=== PATIENT | female | born 2000 | race Caucasian/White ===

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

== ENCOUNTER → 2022-02-18 | Outpatient (CLI) | payer OTHER ==
[2022-02-18 14:45] LABS: Basophils # (A) 0.05 X 10*3/uL (0.00-0.10); Basophils % (A) 0.7 %; Eosinophils # (A) 0.17 X 10*3/uL (0.04-0.35); Eosinophils % (A) 2.2 %; HCT 43.6 % (37.2-46.3); HGB 13.6 g/dL (12.0-15.0); Immature Grans, Automated 0.5 %; Lymphocytes # (A) 2.07 X 10*3/uL (0.90-5.00); Lymphocytes % (A) 27.2 %; MCH 30.7 pg (27.0-32.0); MCHC 31.2 g/dL (32.0-37.0); MCV 98.4 fL (80.0-97.0); Mean Platelet Volume 9.9 fL (9.5-12.2); Monocytes % (A) 7.9 %; NRBC Per 100 WBC 0 /100 WBCS (0.0-0.0); Neutrophils # (A) 4.67 X 10*3/uL (1.80-7.70); Neutrophils % (A) 61.5 %; Platelet Count 389 X 10*3/uL (140-440); RBC 4.43 X 10*6/uL (4.10-5.20); RDW 12.7 % (11.5-14.5)
[2022-02-18 16:05] LABS: African American GFR (CKD) 130.5 (60.0-200.0); Albumin 4.7 g/dL (3.8-4.9); Albumin/Globulin Ratio 1.94 (1.60-3.17); Anion Gap 9.4 mmol/L (10.00-18.00); BUN/Creat Ratio 14.17 Ratio (12.00-20.00); Blood Urea Nitrogen 10.8 mg/dL (9.0-27.0); Calcium 9.9 mg/dL (8.7-10.3); Globulin 2.4 g/dL (1.6-3.3); Non-African American GFR(CKD) 112.6 (60.0-200.0); Potassium 5.1 mmol/L (3.5-5.5); Testosterone 59.3 ng/mL (9.01-47.94); Total Bilirubin 0.4 mg/dL (0.30-1.20); Total Protein 7.1 g/dL (6.2-8.2)
== END | disposition home or self-care (01) ==
LOC: LABWHC1 09:23
DX: Z00.00 Encounter for general adult medical examination without abnormal findings (principal); E55.9 Vitamin D deficiency, unspecified
CPT/HCPCS: 36415; 80053; 82024; 82306; 82533; 84403; 85025

== ENCOUNTER → 2022-05-26 | Outpatient (CLI) | payer OTHER ==
[2022-05-26 18:27] LABS: Basophils # (A) 0.05 X 10*3/uL (0.00-0.10); Basophils % (A) 0.5 %; Eosinophils # (A) 0.24 X 10*3/uL (0.04-0.35); Eosinophils % (A) 2.2 %; HCT 42.5 % (37.2-46.3); HGB 13.8 g/dL (12.0-15.0); Immature Grans, Automated 0.3 %; Lymphocytes # (A) 2.07 X 10*3/uL (0.90-5.00); Lymphocytes % (A) 19.1 %; MCH 30.9 pg (27.0-32.0); MCHC 32.5 g/dL (32.0-37.0); MCV 95.1 fL (80.0-97.0); Mean Platelet Volume 9.9 fL (9.5-12.2); Monocytes # (A) 0.62 X 10*3/uL (0.20-1.00); Monocytes % (A) 5.7 %; NRBC Per 100 WBC 0 /100 WBCS (0.0-0.0); Neutrophils # (A) 7.83 X 10*3/uL (1.80-7.70); Neutrophils % (A) 72.2 %; Platelet Count 430 X 10*3/uL (140-440); RBC 4.47 X 10*6/uL (4.10-5.20); RDW 12.1 % (11.5-14.5); WBC 10.84 X 10*3/uL (4.50-10.00)
[2022-05-26 19:49] LABS: African American GFR (CKD) 144.6 (60.0-200.0); Albumin 4.9 g/dL (3.8-4.9); Albumin/Globulin Ratio 1.96 (1.60-3.17); Anion Gap 11.5 mmol/L (10.00-18.00); BUN/Creat Ratio 22.43 Ratio (12.00-20.00); Blood Urea Nitrogen 15.7 mg/dL (9.0-27.0); Calcium 10.1 mg/dL (8.7-10.3); Carbon Dioxide 23.5 mmol/L (20.0-27.5); Globulin 2.5 g/dL (1.6-3.3); Non-African American GFR(CKD) 124.7 (60.0-200.0); Potassium 4.2 mmol/L (3.5-5.5); Total Bilirubin 0.2 mg/dL (0.30-1.20); Total Protein 7.4 g/dL (6.2-8.2)
[2022-05-26 21:06] LABS: Appearance,Urine Clear (Clear); Bilirubin,Urine Negative (Negative); Blood,Urine Negative (Negative); Color,Urine Yellow (Yellow); Ketones,Urine Negative (Negative); Nitrite,Urine Negative (Negative); PH, Urine 6.5 (5.0-8.0); Specific Gravity,Urine 1.021 (1.001-1.030); Urobilinogen,Urine 0.2 (0.2,1.0)
[2022-05-26 21:34] LABS: Bacteria,Urine 1+ /HPF (None Seen); Calcium Oxalate Crystals,Urine Present /LPF (None Seen)
== END | disposition home or self-care (01) ==
LOC: LABWHC1 12:15
PROVIDERS: ATTEND Pediatrics
DX: N39.0 Urinary tract infection, site not specified (principal)
CPT/HCPCS: 36415; 80053; 81001; 85025; 87086

== ENCOUNTER 2024-04-04 11:34 | Emergency (ER) | payer OTHER ==
[2024-04-04 11:43] VITALS: RESP 16; TEMP 99.2
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
[2024-04-04] MEDS: ACETAMINOPHEN TAB 325 MG TAB PO STA (11:58)
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
[2024-04-04 13:58] VITALS: BP 119/78; PULSE 67
== END 2024-04-04 14:00 | disposition home or self-care (01) ==
LOC: EC 11:34
DX: V89.2XXA Person injured in unspecified motor-vehicle accident, traffic, initial encounter
CPT/HCPCS: 70450; 72125; 81025; 99284

== ENCOUNTER 2024-05-03 23:10 | Emergency (ER) | payer OTHER ==
[2024-05-04] MEDS: KETOROLAC 15 MG/ML 1 ML VIAL IM STA (00:15)
--- NOTE | 2024-05-04 00:32 | ED ---
Back Pain HPI - General Chief Complaint: Back Pain/Injury Stated Complaint: Side Pain Time Seen by Provider: 05/03/24 23:46 Source: patient Limitations: no limitations - History of Present Illness Initial Comments: 24-year-old female presenting with chief complaint of back pain. Patient is having pain in her right side. Pain has been ongoing for the last few days. No dysuria or hematuria. Denies any injury or trauma. No loss of bowel or bladder control or saddle paresthesia. She does state that she been having cloudy urine. No fevers or chills. No nausea or vomiting. She does have some radiation to the side of her abdomen. - Related Data Home Medications Medication Instructions Recorded Confirmed FLUoxetine HCL [PROzac] 20 mg PO HS 05/04/24 05/04/24 buPROPion XL [Wellbutrin XL] 150 mg PO DAILY 05/04/24 05/04/24 Allergies Allergy/AdvReac Type Severity Reaction Status Date / Time Latex, Natural Rubber Allergy Unknown Verified 05/04/24 17:15 Sulfa (Sulfonamide Allergy Unknown Verified 05/04/24 17:15 Antibiotics) STEROIDS AdvReac see comment Uncoded 05/04/24 17:15 Review of Systems ROS Statement: Those systems with pertinent positive or pertinent negative responses have been documented in the HPI. ROS Other: All systems not noted in ROS Statement are negative. Past Medical History Past Medical History: Asthma Additional Past Medical History / Comment(s): migraines, kidney stones History of Any Multi-Drug Resistant Organisms: None Reported Past Surgical History: No Surgical Hx Reported Additional Past Surgical History / Comment(s): nasal surgery Past Psychological History: No Psychological Hx Reported Smoking Status: Current every day smoker, Vaper Past Alcohol Use History: Occasional Past Drug Use History: Marijuana General Exam Limitations: no limitations General appearance: alert, in no apparent distress Head exam: Present: atraumatic, normocephalic, normal inspection Eye exam: Present: normal appearance, PERRL Neck exam: Present: normal inspection. Absent: meningismus Respiratory exam: Present: normal lung sounds bilaterally. Absent: respiratory distress, wheezes, rales, rhonchi, stridor Cardiovascular Exam: Present: regular rate, normal rhythm, normal heart sounds. Absent: systolic murmur, diastolic murmur, rubs, gallop, clicks Back exam: Present: normal inspection. Absent: tenderness Neurological exam: Present: alert, oriented X3 Psychiatric exam: Present: normal affect, normal mood Skin exam: Present: warm, dry Course Vital Signs 05/03/24 05/04/24 23:18 02:11 Temperature 99.2 F 98.3 F Pulse Rate 114 H 76 Respiratory 20 18 Rate Blood Pressure 117/79 103/70 O2 Sat by Pulse 97 100 Oximetry Medical Decision Making - Medical Decision Making Was pt. sent in by a medical professional or institution (, PA, BALLOON MAKER, urgent care, hospital, or retirement...) When possible be specific @ -No Did you speak to anyone other than the patient for history (EMS, parent, family, police, friend...)? What history was obtained from this source @ -No Did you review nursing and triage notes (agree or disagree)? Why? @ -I reviewed and agree with nursing and triage notes Were old charts reviewed (outside hosp., previous admission, EMS record, old EKG, old radiological studies, urgent care reports/EKG's, retirement records)? Report findings @ -No old charts were reviewed Differential Diagnosis (chest pain, altered mental status, abdominal pain women, abdominal pain men, vaginal bleeding, weakness, fever, dyspnea, syncope, headache, dizziness, GI bleed, back pain, seizure, CVA, palpatations, mental health, musculoskeletal)? @ - MDM Differential Back Pain: Strain, zoster, cauda equina syndrome, epidural abscess, vertebral osteomyelitis, discitis, fracture, subluxation, disc herniation, DJD, spinal steffen nosis, dissection, AAA, pancreatitis, peptic ulcer disease, pyelonephritis, kidney stone this is not meant to be an all-inclusive list. EKG interpreted by me (3pts min.). @ -As above X-rays interpreted by me (1pt min.). @ -None done CT interpreted by me (1pt min.). @ -None done U/S interpreted by me (1pt. min.). @ -None done What testing was considered but not performed or refused? (CT, X-rays, U/S, labs)? Why? @ -None What meds were considered but not given or refused? Why? @ -None Did you discuss the management of the patient with other professionals (professionals i.e. , CHRISTOPHER, BALLOON MAKER, lab, RT, psych nurse, vp digital marketing social media and crm, tnt powder worker, teacher, business practices officer, binder caser)? Give summary @ -No Was smoking cessation discussed for >3mins.? @ -No Was critical care preformed (if so, how long)? @ -No Were there social determinants of health that impacted care today? How? (Homelessness, low income, unemployed, alcoholism, drug addiction, transportation, low edu. Level, literacy, decrease access to med. care, custodial, rehab)? @ -No Was there de-escalation of care discussed even if they declined (Discuss DNR or withdrawal of care, Hospice)? DNR status @ -No What co-morbidities impacted this encounter? (DM, HTN, Smoking, COPD, CAD, Cancer, CVA, ARF, Chemo, Hep., AIDS, mental health diagnosis, sleep apnea, morbid obesity)? @ -None Was patient admitted / discharged? Hospital course, mention meds given and route, prescriptions, significant lab abnormalities, going to OR and other pertinent info. @ -24-year-old female presenting with chief complaint of pain in her right side/back. History and physical examination are conducted. Patient mildly tachycardic. Negative for influenza, RSV, COVID. Urine is positive for infection with greater than 182 WBCs, positive nitrates, small blood. Negative hCG. Patient is treated with ketorolac and 1 g of ceftriaxone. She is educated on today's findings. Provided with prescription for Keflex. She is agreeable discharge home. Follow-up with PCP. Report back to ER with any new or worsening symptoms. Discussed return parameters and answered all questions. Patient conveyed verbal understanding and agreed to the plan. I discussed this case in detail with my attending Dr. Davis Undiagnosed new problem with uncertain prognosis? @ -No Drug Therapy requiring intensive monitoring for toxicity (Heparin, Nitro, Insulin, Cardizem)? @ -No Were any procedures done? @ -No Diagnosis/symptom? @ -Pyelonephritis Acute, or Chronic, or Acute on Chronic? @ -Acute Uncomplicated (without systemic symptoms) or Complicated (systemic symptoms)? @ -Uncomplicated Side effects of treatment? @ -No Exacerbation, Progression, or Severe Exacerbation? @ -No Poses a threat to life or bodily function? How? (Chest pain, [place], [place], pneumonia, PE, COPD, DKA, ARF, appy, cholecystitis, CVA, Diverticulitis, Homicidal, Suicidal, threat to staff... and all critical care pts) @ -Potential if not properly treated - Lab Data Lab Results 05/04/24 05/04/24 05/04/24 Range/Units 00:14 00:14 00:14 Urine Color Colorless Urine Appearance Cloudy H (Clear) Urine pH 5.5 (5.0-8.0) Ur Specific [place] 1.011 (1.001-1.035) Urine Protein Trace H (Negative) Urine Glucose (UA) Negative (Negative) Urine Ketones Negative (Negative) Urine Blood Small H (Negative) Urine Nitrite Positive H (Negative) Urine Bilirubin Negative (Negative) Urine Urobilinogen <2.0 (<2.0) mg/dL Ur Leukocyte Esterase Large H (Negative) Urine WBC >182 H (0-5) /hpf Urine WBC Clumps Few H (None) /hpf Urine Bacteria Occasional H (None) /hpf Urine Yeast (Budding) Few H (None) /hpf Urine HCG, Qual Not Detected (Not Detectd) Influenza Type A (PCR) Not Detected (Not Detectd) Influenza Type B (PCR) Not Detected (Not Detectd) RSV (PCR) Not Detected (Not Detectd) SARS-CoV-2 (PCR) Not Detected (Not Detectd) Disposition Clinical Impression: Pyelonephritis Disposition: HOME SELF-CARE Condition: Fair Instructions (If sedation given, give patient instructions): Kidney Infection (ED) Additional Instructions: Follow-up with your PCP. Report back to ER with any new or worsening symptoms. Take medication as prescribed. Take Motrin and Tylenol as needed for pain control. Is patient prescribed a controlled substance at d/c from ED?: No Referrals: Nonstaff,Physician [Primary Care Provider] - 1-2 days Time of Disposition: 01:52
[2024-05-04 00:50] LABS: Appearance,Urine Cloudy (Clear); Bacteria,Urine Occasional /hpf; Bilirubin,Urine Negative (Negative); Blood,Urine Small (Negative); Budding Yeast,Urine Few /hpf; Color,Urine Colorless; Glucose,Urine (UA) Negative (Negative); Ketones,Urine Negative (Negative); Leukocyte Esterase,Urine Large (Negative); Nitrite,Urine Positive (Negative); PH, Urine 5.5 (5.0-8.0); Protein,Urine Trace (Negative); Specific Gravity,Urine 1.011 (1.001-1.035); Urobilinogen,Urine <2.0 mg/dL (<2.0); WBC,Urine >182 /hpf (0-5)
[2024-05-04] MEDS: cefTRIAXone 1,000 MG VIAL (IM USE) IM STA (01:43)
[2024-05-04 02:13] VITALS: BP 103/70; PULSE 76; RESP 18; TEMP 98.3
== END 2024-05-04 02:15 | disposition home or self-care (01) ==
LOC: EC 23:10
DX: N12 Tubulo-interstitial nephritis, not specified as acute or chronic (principal); B96.20 Unspecified Escherichia coli [E. coli] as the cause of diseases classified elsewhere
CPT/HCPCS: 99283; 96372 ×2; 81001; 81025; 87086; 87077; 87186; 87636; J0696; J1885

== ENCOUNTER 2024-05-04 13:47 | Inpatient (IN) | payer OTHER ==
--- NOTE | 2024-05-04 14:28 | ED ---
Abdominal Pain HPI - General Chief Complaint: Abdominal Pain Stated Complaint: recheck kidney issue Time Seen by Provider: 05/04/24 14:07 Source: patient, RN notes reviewed Mode of arrival: ambulatory Limitations: no limitations - History of Present Illness Initial Comments: 24-year-old female presents to the emergency department with chief complaint of nausea vomiting, right flank pain, and dysuria. She states that she was seen in the emergency department yesterday she received a prescription for antibiotics which she has not been able to fill since then she has had intractable nausea and vomiting. Her history is significant for right nephrolithiasis. She reports cloudy urine, dysuria, right flank pain, fever, and generalized mild abdominal pain. She denies hematuria, shortness of breath, chest pain, palpitations. - Related Data Home Medications Medication Instructions Recorded Confirmed Cephalexin [Keflex] 500 mg PO TID 02/08/21 02/08/21 Ibuprofen [Motrin Ib] 600 mg PO Q8H PRN 02/08/21 02/08/21 Previous Rx's Medication Instructions Recorded HYDROcodone/APAP 5-325MG [Emma 1 tab PO Q6HR PRN 3 Days #12 tab 02/08/21 5-325] Ondansetron [Zofran ODT] 4 mg PO Q8HR PRN 8 Days #24 tab 02/08/21 Cephalexin [Keflex] 500 mg PO Q6HR 14 Days #56 cap 05/04/24 Allergies Allergy/AdvReac Type Severity Reaction Status Date / Time Sulfa (Sulfonamide Allergy Unknown Verified 05/04/24 14:03 Antibiotics) Latex, Natural Rubber AdvReac Unknown Verified 05/03/24 23:20 STEROIDS AdvReac Unknown Uncoded 05/03/24 23:20 Review of Systems ROS Statement: Those systems with pertinent positive or pertinent negative responses have been documented in the HPI. ROS Other: All systems not noted in ROS Statement are negative. Past Medical History Past Medical History: Asthma Additional Past Medical History / Comment(s): migraines, kidney stones History of Any Multi-Drug Resistant Organisms: None Reported Past Surgical History: No Surgical Hx Reported Additional Past Surgical History / Comment(s): nasal surgery Past Psychological History: No Psychological Hx Reported Smoking Status: Current every day smoker, Vaper Past Alcohol Use History: Occasional Past Drug Use History: Marijuana General Exam Limitations: no limitations General appearance: alert, in no apparent distress Head exam: Present: atraumatic, normocephalic, normal inspection Eye exam: Present: normal appearance, PERRL, EOMI. Absent: scleral icterus, conjunctival injection, periorbital swelling Respiratory exam: Present: normal lung sounds bilaterally. Absent: respiratory distress, wheezes, rales, rhonchi, stridor Cardiovascular Exam: Present: regular rate, normal rhythm, normal heart sounds. Absent: systolic murmur, diastolic murmur, rubs, gallop, clicks GI/Abdominal exam: Present: soft, normal bowel sounds. Absent: distended, tenderness, guarding, rebound, rigid Course Vital Signs 05/04/24 14:03 Temperature 99 F Pulse Rate 109 H Respiratory 20 Rate Blood Pressure 107/55 O2 Sat by Pulse 96 Oximetry Medical Decision Making - Medical Decision Making Was pt. sent in by a medical professional or institution (CHRISTOPHER Zhang, PATIENT INSURANCE CLERK, urgent care, hospital, or fdc...) When possible be specific @ -No Did you speak to anyone other than the patient for history (EMS, parent, family, police, friend...)? What history was obtained from this source @ -No Did you review nursing and triage notes (agree or disagree)? Why? @ -I reviewed and agree with nursing and triage notes Were old charts reviewed (outside hosp., previous admission, EMS record, old EKG, old radiological studies, urgent care reports/EKG's, fdc records)? Report findings @ -Reviewed urinalysis from yesterday Differential Diagnosis (chest pain, altered mental status, abdominal pain women, abdominal pain men, vaginal bleeding, weakness, fever, dyspnea, syncope, headache, dizziness, GI bleed, back pain, seizure, CVA, palpatations, mental health, musculoskeletal)? @ -Differential Abdominal Pain Women: Appendicitis, Cholecystitis, diverticulosis, ischemic bowel, pancreatitis, hepatitis, UTI, gastroenteritis, AAA, incarcerated hernia, bowel obstruction, constipation, inflammatory bowel, hepatitis, peptic ulcer disease, splenic infarction, perforated viscus, vulvitis, ovarian torsion, PID, kidney stone, placenta abruption, this is not meant to be an all-inclusive list EKG interpreted by me (3pts min.). @ -None X-rays interpreted by me (1pt min.). @ -None done CT interpreted by me (1pt min.). @ -None done U/S interpreted by me (1pt. min.). @ -None done What testing was considered but not performed or refused? (CT, X-rays, U/S, labs)? Why? @ -None What meds were considered but not given or refused? Why? @ -None Did you discuss the management of the patient with other professionals (professionals i.e. Dr., PA, PATIENT INSURANCE CLERK, lab, RT, psych nurse, social worker masters, micro computer data processor, teacher, chief operating officer, rn case manager)? Give summary @ -EMH for admission Was smoking cessation discussed for >3mins.? @ -No Was critical care preformed (if so, how long)? @ -No Were there social determinants of health that impacted care today? How? (Homelessness, low income, unemployed, alcoholism, drug addiction, transportation, low edu. Level, literacy, decrease access to med. care, long-term, rehab)? @ -No Was there de-escalation of care discussed even if they declined (Discuss DNR or withdrawal of care, Hospice)? DNR status @ -No What co-morbidities impacted this encounter? (DM, HTN, Smoking, COPD, CAD, Cancer, CVA, ARF, Chemo, Hep., AIDS, mental health diagnosis, sleep apnea, morbid obesity)? @ -None Was patient admitted / discharged? Hospital course, mention meds given and route, prescriptions, significant lab abnormalities, going to OR and other pertinent info. @ -Admitted patient has significant UTI, concern for pyelonephritis patient noted to be tachycardic, febrile along with leukocytosis and lactic acidosis. Patient was given fluid bolus, patient started maintenance fluids, patient was given additional 1 g of Rocephin as she received 112 hours ago. Patient was kept on 2 gm of Rocephin every 24 hours. Undiagnosed new problem with uncertain prognosis? @ -No Drug Therapy requiring intensive monitoring for toxicity (Heparin, Nitro, Insulin, Cardizem)? @ -No Were any procedures done? @ -No Diagnosis/symptom? @ -Pyelonephritis Acute, or Chronic, or Acute on Chronic? @ -Acute Uncomplicated (without systemic symptoms) or Complicated (systemic symptoms)? @ -Complicated Side effects of treatment? @ -No Exacerbation, Progression, or Severe Exacerbation? @ -No Poses a threat to life or bodily function? How? (Chest pain, [place], [place], pneumonia, PE, COPD, DKA, ARF, appy, cholecystitis, CVA, Diverticulitis, Homicidal, Suicidal, threat to staff... and all critical care pts) @ -Yes sepsis, causing endorgan failure - Lab Data Result diagrams: 05/04/24 14:44 05/04/24 14:44 Lab Results 05/04/24 05/04/24 05/04/24 Range/Units 14:44 14:44 14:44 WBC 17.2 H (3.8-10.6) k/uL RBC 4.13 (3.80-5.40) m/uL Hgb 12.8 (11.4-16.0) gm/dL Hct 38.5 (34.0-46.0) % MCV 93.3 (80.0-100.0) fL MCH 31.1 (25.0-35.0) pg MCHC 33.3 (31.0-37.0) g/dL RDW 11.8 (11.5-15.5) % Plt Count 304 (150-450) k/uL MPV 7.0 Neutrophils % 92 % Lymphocytes % 3 % Monocytes % 4 % Eosinophils % 1 % Basophils % 0 % Neutrophils # 15.8 H (1.3-7.7) k/uL Lymphocytes # 0.5 L (1.0-4.8) k/uL Monocytes # 0.7 (0-1.0) k/uL Eosinophils # 0.2 (0-0.7) k/uL Basophils # 0.0 (0-0.2) k/uL Sodium 135 L (137-145) mmol/L Potassium 3.7 (3.5-5.1) mmol/L Chloride 106 (98-107) mmol/L Carbon Dioxide 17 L (22-30) mmol/L Anion Gap 12 mmol/L BUN 9 (7-17) mg/dL Creatinine 0.63 (0.52-1.04) mg/dL Est GFR (CKD-EPI)AfAm >90 (>60 ml/min/1.73 sqM) Est GFR (CKD-EPI)NonAf >90 (>60 ml/min/1.73 sqM) Glucose 200 H (74-99) mg/dL Plasma Lactic Acid Rg 3.5 H* (0.7-2.0) mmol/L Calcium 9.1 (8.4-10.2) mg/dL Total Bilirubin 0.7 (0.2-1.3) mg/dL AST 29 (14-36) U/L ALT 21 (4-34) U/L Alkaline Phosphatase 49 (38-126) U/L Total Protein 7.1 (6.3-8.2) g/dL Albumin 4.3 (3.5-5.0) g/dL Disposition Clinical Impression: Pyelonephritis Disposition: ADMITTED IP TO THIS HOSP Condition: Fair Referrals: Nonstaff,Physician [Primary Care Provider] - 1-2 days Time of Disposition: 15:56
[2024-05-04] MEDS: KETOROLAC 15 MG/ML 1 ML VIAL IVP STA (14:50)
[2024-05-04] MEDS: ONDANSETRON 4 MG/2 ML VIAL IVP STA (14:50)
[2024-05-04] MEDS: cefTRIAXone IN SWFI 1,000 MG/10 ML SYRINGE IVP STA (14:50)
[2024-05-04] MEDS: SODIUM CHLORIDE 0.9% 1,000 ML IV STA (14:54)
[2024-05-04 15:00] LABS: Basophils % (A) 0 %; Eosinophils # (A) 0.2 k/uL (0-0.7); Eosinophils % (A) 1 %; HCT 38.5 % (34.0-46.0); HGB 12.8 gm/dL (11.4-16.0); Lymphocytes # (A) 0.5 k/uL (1.0-4.8); Lymphocytes % (A) 3 %; MCH 31.1 pg (25.0-35.0); MCHC 33.3 g/dL (31.0-37.0); MCV 93.3 fL (80.0-100.0); Monocytes # (A) 0.7 k/uL (0-1.0); Monocytes % (A) 4 %; Neutrophils # (A) 15.8 k/uL (1.3-7.7); Neutrophils % (A) 92 %; Platelet Count 304 k/uL (150-450); RBC 4.13 m/uL (3.80-5.40); RDW 11.8 % (11.5-15.5); WBC 17.2 k/uL (3.8-10.6)
[2024-05-04 15:12] LABS: AST 29 U/L (14-36); African American GFR (CKD) >90 (>60 ml/min/1.73 sqM); Albumin 4.3 g/dL (3.5-5.0); Alkaline Phosphatase 49 U/L (38-126); Anion Gap 12 mmol/L; Blood Urea Nitrogen 9 mg/dL (7-17); Calcium 9.1 mg/dL (8.4-10.2); Carbon Dioxide 17 mmol/L (22-30); Chloride 106 mmol/L (98-107); Glucose 200 mg/dL (74-99); Non-African American GFR(CKD) >90 (>60 ml/min/1.73 sqM); Potassium 3.7 mmol/L (3.5-5.1); Sodium 135 mmol/L (137-145); Total Bilirubin 0.7 mg/dL (0.2-1.3); Total Protein 7.1 g/dL (6.3-8.2)
[2024-05-04 15:46] LABS: ALT 21 U/L (4-34)
[2024-05-04] MEDS ORDERED: NALOXONE 0.4 MG/ML 1 ML VIAL IV PRN (15:57)
[2024-05-04] MEDS: SODIUM CHLORIDE 0.9% 1,000 ML IV SCH (16:14)
[2024-05-04] MEDS: KETOROLAC 15 MG/ML 1 ML VIAL IVP PRN (17:24)
[2024-05-04 18:53] LABS: Appearance,Urine Cloudy (Clear); Bacteria,Urine Rare /hpf; Bilirubin,Urine Negative (Negative); Blood,Urine Trace (Negative); Color,Urine Colorless; Glucose,Urine (UA) Negative (Negative); Ketones,Urine Negative (Negative); Leukocyte Esterase,Urine Large (Negative); Mucus,Urine Rare /hpf; Nitrite,Urine Negative (Negative); PH, Urine 5.5 (5.0-8.0); Protein,Urine Negative (Negative); RBC,Urine 9 /hpf (0-5); Specific Gravity,Urine 1.012 (1.001-1.035); Squamous Epithelial Cell,Urine 11 /hpf (0-4); Urobilinogen,Urine <2.0 mg/dL (<2.0); WBC,Urine 48 /hpf (0-5)
[2024-05-04] MEDS: ACETAMINOPHEN TAB 325 MG TAB PO PRN (19:26)
[2024-05-05] MEDS: ONDANSETRON 4 MG/2 ML VIAL IVP PRN (09:26)
[2024-05-05] MEDS: buPROPion XL 150 MG TAB.ER.24H PO SCH (10:35)
[2024-05-05 12:28] LABS: Basophils % (A) 0 %; Eosinophils # (A) 0.1 k/uL (0-0.7); Eosinophils % (A) 1 %; HCT 40.4 % (34.0-46.0); HGB 12.9 gm/dL (11.4-16.0); Lymphocytes # (A) 1.4 k/uL (1.0-4.8); Lymphocytes % (A) 16 %; MCH 30.5 pg (25.0-35.0); MCV 95.4 fL (80.0-100.0); Mean Platelet Volume 7.7; Monocytes # (A) 0.7 k/uL (0-1.0); Monocytes % (A) 8 %; Neutrophils # (A) 6.2 k/uL (1.3-7.7); Neutrophils % (A) 73 %; Platelet Count 254 k/uL (150-450); RBC 4.23 m/uL (3.80-5.40); RDW 12.2 % (11.5-15.5); WBC 8.6 k/uL (3.8-10.6)
[2024-05-05] MEDS ORDERED: METOCLOPRAMIDE 5 MG/ML 2 ML VIAL IVP PRN (12:57)
[2024-05-05 13:02] LABS: ALT 15 U/L (4-34); AST 30 U/L (14-36); African American GFR (CKD) >90 (>60 ml/min/1.73 sqM); Alkaline Phosphatase 54 U/L (38-126); Anion Gap 7 mmol/L; Blood Urea Nitrogen 3 mg/dL (7-17); Calcium 8.2 mg/dL (8.4-10.2); Carbon Dioxide 21 mmol/L (22-30); Chloride 112 mmol/L (98-107); Glucose 85 mg/dL (74-99); Magnesium 1.9 mg/dL (1.6-2.3); Non-African American GFR(CKD) >90 (>60 ml/min/1.73 sqM); Sodium 140 mmol/L (137-145); Total Bilirubin 0.4 mg/dL (0.2-1.3); Total Protein 6.9 g/dL (6.3-8.2)
--- NOTE | 2024-05-05 13:44 | XR ---
EXAMINATION TYPE: XR chest 1V portable DATE OF EXAM: 05/05/2024 1:22 PM COMPARISON: Chest radiographs from 09/05/2020 CLINICAL INDICATION: Female, 24 years old with history of shortness of breath; TECHNIQUE: XR chest 1V portable Frontal view of the chest. FINDINGS: Lungs/Pleura: There is no evidence of pleural effusion, focal consolidation, or pneumothorax. Pulmonary vascularity: Unremarkable. Heart/mediastinum: Cardiomediastinal silhouette is unremarkable. Musculoskeletal: No acute osseous pathology. IMPRESSION: No acute cardiopulmonary disease/process. [facility], , 05/05/2024 1:42 PM
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
--- NOTE | 2024-05-05 17:04 | US ---
EXAMINATION TYPE: US kidneys/renal and bladder DATE OF EXAM: 05/05/2024 COMPARISON: 02/08/2021 CLINICAL INDICATION: Female, 24 years old with history of pyelonephritis, hx of kidney stones; Pyelon ephritis. TECHNIQUE: Grayscale imaging of the bilateral kidneys and urinary bladder: FINDINGS: EXAM MEASUREMENTS: Right Kidney: 12.3 x 3.9 x 4.0 cm Left Kidney: 10.8 x 5.1 x 3.8 cm Right Kidney: No hydronephrosis or masses seen Left Kidney: No hydronephrosis or masses seen Bladder: Anechoic Bilateral Jets seen: yes There is no evidence for hydronephrosis at this point in time. No nephrolithiasis is seen. No farooq s are identified. The urinary bladder is anechoic. IMPRESSION: No evidence for obstructive uropathy or calculus. [facility], , 05/05/2024 5:01 PM
[2024-05-05] MEDS: FLUoxetine HCL 20 MG CAP PO SCH (22:07)
[2024-05-06 05:07] LABS: Basophils % (A) 1 %; Eosinophils # (A) 0.1 k/uL (0-0.7); Eosinophils % (A) 2 %; HCT 33.5 % (34.0-46.0); HGB 11.1 gm/dL (11.4-16.0); Lymphocytes % (A) 28 %; MCH 31.1 pg (25.0-35.0); MCV 94.1 fL (80.0-100.0); Mean Platelet Volume 7.7; Monocytes # (A) 0.7 k/uL (0-1.0); Monocytes % (A) 10 %; Neutrophils # (A) 4.1 k/uL (1.3-7.7); Neutrophils % (A) 57 %; Platelet Count 275 k/uL (150-450); RBC 3.56 m/uL (3.80-5.40); RDW 12.2 % (11.5-15.5); WBC 7.1 k/uL (3.8-10.6)
[2024-05-06 06:00] LABS: ALT 13 U/L (4-34); AST 25 U/L (14-36); African American GFR (CKD) >90 (>60 ml/min/1.73 sqM); Albumin 3.3 g/dL (3.5-5.0); Alkaline Phosphatase 46 U/L (38-126); Anion Gap 7 mmol/L; Blood Urea Nitrogen 4 mg/dL (7-17); Calcium 8.1 mg/dL (8.4-10.2); Carbon Dioxide 24 mmol/L (22-30); Chloride 107 mmol/L (98-107); Glucose 97 mg/dL (74-99); Non-African American GFR(CKD) >90 (>60 ml/min/1.73 sqM); Potassium 3.7 mmol/L (3.5-5.1); Sodium 138 mmol/L (137-145); Total Bilirubin 0.2 mg/dL (0.2-1.3)
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
--- NOTE | 2024-05-06 14:39 | P.PN ---
Subjective Progress Note Date: 05/06/24 Principal diagnosis: Reason for follow-up is pyelonephritis and sepsis Patient is a 24-year-old female with a past medical history significant for asthma kidney stone migraine headache presenting to the hospital for evaluation of right flank pain nausea and vomiting, patient diagnosed with sepsis secondary to the right-sided pyelonephritis. On today's evaluation that is 05/06/2024, Patient is afebrile this morning patient is currently on room air and denies having any shortness of breath, the patient denies any chest pain or cough, the patient denies any nausea vomiting right-sided flank pain has decreased in intensity. Patient white count 7.1, creatinine 0.58 cultures currently pending Objective - Vital Signs Vital signs: Vital Signs Temp 97.7 F 05/06/24 08:00 Pulse 60 05/06/24 08:00 Resp 20 05/06/24 08:00 BP 107/67 05/06/24 08:00 Pulse Ox 100 05/06/24 08:00 FiO2 Intake & Output 05/05/24 05/06/24 05/06/24 18:59 06:59 18:59 Intake Total 910 Balance 910 Intake: Intake, IV Titration 910 Amount Sodium Chloride 0.9% 1, 910 000 ml @ 130 mls/hr IV . Q7H42M [facility] Rx#:[id number] - Exam Young female lying in bed in no distress No tachypnea or accessory muscle respiration Unlabored breathing Awake alert oriented x 3 - Labs CBC & Chem 7: 05/06/24 03:51 05/06/24 03:51 Labs: Abnormal Lab Results - Last 24 Hours (Table) 05/05/24 05/06/24 05/06/24 Range/Units 11:51 03:51 03:51 RBC 3.56 L (3.80-5.40) m/uL Hgb 11.1 L (11.4-16.0) gm/dL Hct 33.5 L (34.0-46.0) % Chloride 112 H (98-107) mmol/L Carbon Dioxide 21 L (22-30) mmol/L BUN 3 L 4 L (7-17) mg/dL Calcium 8.2 L 8.1 L (8.4-10.2) mg/dL Total Protein 6.0 L (6.3-8.2) g/dL Albumin 3.3 L (3.5-5.0) g/dL Microbiology - Last 24 Hours (Table) 05/04/24 16:33 Blood Culture - Preliminary Blood Assessment and Plan (1) Sepsis Current Visit: Yes Status: Acute Code(s): A41.9 - SEPSIS, UNSPECIFIED ORGANISM SNOMED Code(s): 33150104 (2) Allergy to sulfa drugs Current Visit: Yes Status: Acute Code(s): Z88.2 - ALLERGY STATUS TO SULFONAMIDES SNOMED Code(s): 48034284 (3) Pyelonephritis Current Visit: Yes Status: Acute Code(s): N12 - TUBULO-INTERSTITIAL NEPHRITIS, NOT SPCF ACUTE OR CHRONIC SNOMED Code(s): 94574366 Plan: 1patient presented to hospital with sepsis in this patient who did have fever elevated white count right flank pain and urinary symptoms concerning for right- sided pyelonephritis to the likely etiology and likely from enteric gram- negative pathogen. 2sulfa allergy that will limit the number of antibiotics safe to use 3 ultrasound of the kidney bladder with no evidence of any obstructive uropathy 4patient to continue with Rocephin 2 g daily while waiting for the culture to finalize to determine discharge antibiotics Dictation was produced using [employer] dictation software. please excuse any grammatical, word or spelling errors. Time with Patient: Less than 30
[2024-05-06] MEDS ORDERED: ONDANSETRON 4 MG/2 ML VIAL IVP PRN (21:03)
[2024-05-06] MEDS: HYDROCORTISONE SUPPOSITORY 25 MG SUPP RECTAL PRN (21:56)
[2024-05-06] MEDS ORDERED: HYDROcodone/APAP 5-325MG 1 EACH TAB PO PRN (22:02)
[2024-05-06] MEDS: CYCLOBENZAPRINE 10 MG TAB PO PRN (22:29)
[2024-05-07 06:20] LABS: Basophils % (A) 0 %; Eosinophils # (A) 0.3 k/uL (0-0.7); Eosinophils % (A) 4 %; HCT 35.3 % (34.0-46.0); HGB 11.7 gm/dL (11.4-16.0); Lymphocytes # (A) 1.2 k/uL (1.0-4.8); Lymphocytes % (A) 16 %; MCH 30.8 pg (25.0-35.0); MCV 93.4 fL (80.0-100.0); Monocytes # (A) 0.4 k/uL (0-1.0); Monocytes % (A) 5 %; Neutrophils # (A) 5.7 k/uL (1.3-7.7); Neutrophils % (A) 74 %; Platelet Count 303 k/uL (150-450); RBC 3.78 m/uL (3.80-5.40); RDW 11.8 % (11.5-15.5); WBC 7.8 k/uL (3.8-10.6)
[2024-05-07 06:34] LABS: ALT 15 U/L (4-34); AST 20 U/L (14-36); African American GFR (CKD) >90 (>60 ml/min/1.73 sqM); Albumin 3.3 g/dL (3.5-5.0); Alkaline Phosphatase 50 U/L (38-126); Anion Gap 5 mmol/L; Blood Urea Nitrogen 5 mg/dL (7-17); Calcium 8.4 mg/dL (8.4-10.2); Carbon Dioxide 23 mmol/L (22-30); Chloride 111 mmol/L (98-107); Glucose 113 mg/dL (74-99); Non-African American GFR(CKD) >90 (>60 ml/min/1.73 sqM); Potassium 3.6 mmol/L (3.5-5.1); Sodium 139 mmol/L (137-145); Total Bilirubin 0.2 mg/dL (0.2-1.3); Total Protein 5.9 g/dL (6.3-8.2)
[2024-05-07 08:19] LABS: % Iron Saturation 5.28 (12.00-45.00); Iron 14 UG/DL (50-170); Total Iron Binding Capacity 265 UG/DL (228-460)
[2024-05-07 09:04] VITALS: PULSE 64; RESP 20
[2024-05-07] MEDS: SODIUM FERRIC GLUCONAT-SUCROSE 125 MG in SODIUM CHLORIDE 0.9% 100 ML IVPB ONE (13:12)
--- NOTE | 2024-05-07 14:30 | P.PN ---
Subjective Progress Note Date: 05/07/24 Principal diagnosis: Reason for follow-up is pyelonephritis and sepsis Patient is a 24-year-old female with a past medical history significant for asthma kidney stone migraine headache presenting to the hospital for evaluation of right flank pain nausea and vomiting, patient diagnosed with sepsis secondary to the right-sided pyelonephritis. On today's evaluation that is 05/07/2024, patient has been afebrile, patient is breathing comfortably and is currently on room air, patient denies having any significant cough no chest pain, patient denies nausea vomiting or diarrhea and the right-sided flank pain has improved. Patient white count 7.8 creatinine 0.2 culture has been negative so far Objective - Vital Signs Vital signs: Vital Signs Temp 98.6 F 05/07/24 08:00 Pulse 64 05/07/24 08:00 Resp 20 05/07/24 08:00 BP 117/67 05/07/24 08:00 Pulse Ox 98 05/07/24 08:00 FiO2 Intake & Output 05/06/24 05/07/24 05/07/24 19:59 06:59 18:59 Intake Total Balance Intake: Intake, IV Titration Amount Sodium Chloride 0.9% 1, 000 ml @ 75 mls/hr IV . [id number] [facility] Rx#:[id number] Other: # Voids # Bowel Movements - Exam Young female lying in bed in no distress No tachypnea or accessory muscle respiration Unlabored breathing Awake alert oriented x 3 - Labs CBC & Chem 7: 05/07/24 05:57 05/07/24 05:57 Labs: Abnormal Lab Results - Last 24 Hours (Table) 05/06/24 05/07/24 05/07/24 Range/Units 12:11 05:57 05:57 RBC 3.78 L (3.80-5.40) m/uL Chloride 111 H (98-107) mmol/L BUN 5 L (7-17) mg/dL Glucose 113 H (74-99) mg/dL Iron 14 L (50-170) UG/DL % Saturation 5.28 L (12.00-45.00) Transferrin 189.0 L (204.0-354.0) mg/dL Total Protein 5.9 L (6.3-8.2) g/dL Albumin 3.3 L (3.5-5.0) g/dL Microbiology - Last 24 Hours (Table) 05/04/24 16:33 Blood Culture - Preliminary Blood 05/05/24 12:15 Urine Culture - Final Urine,Clean Catch Assessment and Plan (1) Sepsis Current Visit: Yes Status: Acute Code(s): A41.9 - SEPSIS, UNSPECIFIED ORGANISM SNOMED Code(s): 65201593 (2) Allergy to sulfa drugs Current Visit: Yes Status: Acute Code(s): Z88.2 - ALLERGY STATUS TO SULFONAMIDES SNOMED Code(s): 56248463 (3) Pyelonephritis Current Visit: Yes Status: Acute Code(s): N12 - TUBULO-INTERSTITIAL NEPHRITIS, NOT SPCF ACUTE OR CHRONIC SNOMED Code(s): 65677351 Plan: 1patient presented to hospital with sepsis in this patient who did have fever elevated white count right flank pain and urinary symptoms concerning for right- sided pyelonephritis to the likely etiology and likely from enteric gram- negative pathogen. 2sulfa allergy that will limit the number of antibiotics safe to use 3 ultrasound of the kidney bladder with no evidence of any obstructive uropathy 4patient has shown clinical improvement with Rocephin to continue while inpatient will transition to oral Ceftin on discharge Dictation was produced using [employer] dictation software. please excuse any grammatical, word or spelling errors. Time with Patient: Less than 30
[2024-05-07 16:25] VITALS: BP 102/58; TEMP 98.5
--- NOTE | 2024-05-07 22:00 | DS ---
DISCHARGE SUMMARY A 24-year-old female, who came in with pyelonephritis, abdominal pain, nausea, and vomiting. The patient was stabilized with IV antibiotics and fluids and pain control. In the next 24 to 48 hours, the patient improved to the point she could go home on oral Ceftin 500 b.i.d. for 7 days. She was also found to be iron deficient anemia, for which 325 mg daily was given. She will follow up as an outpatient in a week. Condition stable. Prognosis guarded. Ambulate as tolerated. MMODL / IJN: [id number] /
== END 2024-05-07 17:55 | disposition home or self-care (01) | DRG 720 ==
LOC: EC 13:47 → 6NMEDSUR 16:23 → OBSVTOIN 16:24 → 6NMEDSUR 18:15 → 4FBP 18:22
PROVIDERS: ADMIT Family Medicine; ATTEND Family Medicine
DX: A41.9 Sepsis, unspecified organism (principal); F17.290 Nicotine dependence, other tobacco product, uncomplicated; F32.A Depression, unspecified; F41.9 Anxiety disorder, unspecified; G43.909 Migraine, unspecified, not intractable, without status migrainosus; J45.909 Unspecified asthma, uncomplicated; D50.9 Iron deficiency anemia, unspecified; N12 Tubulo-interstitial nephritis, not specified as acute or chronic; Z79.899 Other long term (current) drug therapy; Z87.442 Personal history of urinary calculi; Z88.2 Allergy status to sulfonamides; Z28.310 Unvaccinated for COVID-19; Z28.21 Immunization not carried out because of patient refusal; Z88.8 Allergy status to other drugs, medicaments and biological substances; Z91.040 Latex allergy status; V89.2XXD Person injured in unspecified motor-vehicle accident, traffic, subsequent encounter
CPT/HCPCS: 36415; 71045; 76770; 80053; 81001; 81025; 82607; 82746; 83540; 83550; 83605; 83735; 84443; 85025; 87040; 87086; 96361; 96374; 96375; 96376; 99285

== ENCOUNTER 2024-10-22 00:35 | Emergency (ER) | payer OTHER ==
[2024-10-22 00:39] VITALS: RESP 18; TEMP 98.8
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
[2024-10-22] MEDS: SODIUM CHLORIDE 0.9% 1,000 ML IV STA (01:30)
[2024-10-22] MEDS: METOCLOPRAMIDE 5 MG/ML 2 ML VIAL IVP STA (01:32)
[2024-10-22] MEDS: diphenhydrAMINE 50 MG/ML 1 ML VIAL IVP STA (01:33)
[2024-10-22 01:45] LABS: Basophils # (A) 0.13 10*3/uL (0.00-0.10); Basophils % (A) 0.5 %; Eosinophils # (A) 0.08 10*3/uL (0.04-0.35); Eosinophils % (A) 0.3 %; HCT 44.6 % (37.2-46.3); HGB 15.1 g/dL (12.0-15.0); Lymphocytes # (A) 2.71 10*3/uL (0.90-5.00); Lymphocytes % (A) 11.1 %; MCH 30.4 pg (27.0-32.0); MCHC 33.9 g/dL (32.0-37.0); MCV 89.9 fL (80.0-97.0); Mean Platelet Volume 9.3 fL (9.5-12.2); Monocytes % (A) 6.5 %; Neutrophils # (A) 19.83 10*3/uL (1.80-7.70); Neutrophils % (A) 80.9 %; Platelet Count 547 10*3/uL (140-440); RBC 4.96 10*6/uL (4.10-5.20); WBC 24.51 10*3/uL (4.50-10.00)
[2024-10-22 02:00] LABS: Appearance,Urine Clear (Clear); Bacteria,Urine Many /hpf; Bilirubin,Urine Negative (Negative); Blood,Urine Negative (Negative); Color,Urine Light Yellow; Glucose,Urine (UA) Negative (Negative); Ketones,Urine Trace (Negative); Leukocyte Esterase,Urine Trace (Negative); Mucus,Urine Rare /hpf; Nitrite,Urine Positive (Negative); PH, Urine 7.5 (5.0-8.0); Protein,Urine Negative (Negative); RBC,Urine 2 /hpf (0-5); Specific Gravity,Urine 1.014 (1.001-1.035); Squamous Epithelial Cell,Urine 1 /hpf (0-4); Urobilinogen,Urine <2.0 mg/dL (<2.0); WBC,Urine 14 /hpf (0-5)
[2024-10-22 02:02] LABS: ALT 25 U/L (4-34); AST 36 U/L (14-36); African American GFR (CKD) >90 (>60 ml/min/1.73 sqM); Albumin 5.4 g/dL (3.5-5.0); Anion Gap 14 mmol/L; Blood Urea Nitrogen 7 mg/dL (7-17); Calcium 10.4 mg/dL (8.4-10.2); Carbon Dioxide 24 mmol/L (22-30); Chloride 103 mmol/L (98-107); Glucose 90 mg/dL (74-99); Non-African American GFR(CKD) >90 (>60 ml/min/1.73 sqM); Potassium 4.5 mmol/L (3.5-5.1); Sodium 141 mmol/L (137-145); Total Bilirubin 0.7 mg/dL (0.2-1.3); Total Protein 8.8 g/dL (6.3-8.2)
[2024-10-22 02:03] LABS: Alkaline Phosphatase 64 U/L (38-126); Lipase 160 U/L (23-300)
[2024-10-22 02:26] LABS: Influenza A Not Detected (Not Detectd); Influenza B Not Detected (Not Detectd); RSV Not Detected (Not Detectd)
[2024-10-22] MEDS: cefTRIAXone IN SWFI 1,000 MG/10 ML SYRINGE IVP STA (02:27)
[2024-10-22 03:10] VITALS: BP 133/74; PULSE 93
[2024-10-22] MEDS: ONDANSETRON 4 MG ODT STARTER PACK 2 TAB BTL PO STA (03:11)
[2024-10-22] MEDS: CEPHALEXIN 500MG STARTER PACK 4 CAP BTL PO STA (03:11)
== END 2024-10-22 03:14 | disposition home or self-care (01) ==
LOC: EC 00:35
DX: R11.2 Nausea with vomiting, unspecified (principal); N39.0 Urinary tract infection, site not specified; Z11.52 Encounter for screening for COVID-19; F17.290 Nicotine dependence, other tobacco product, uncomplicated; Z88.2 Allergy status to sulfonamides; Z91.040 Latex allergy status; Z88.8 Allergy status to other drugs, medicaments and biological substances
CPT/HCPCS: 99284 ×2; 96374 ×2; 96375 ×2; 96361 ×2; 36415; 80053; 83690; 85025; 81001; 81025; 87086; 87077; 87186; 87636; J1200; J2765; J0696; S0119

== ENCOUNTER 2024-10-25 02:09 | Emergency (ER) | payer OTHER ==
[2024-10-25 02:22] VITALS: RESP 18; TEMP 99.2
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
[2024-10-25] MEDS: KETOROLAC 15 MG/ML 1 ML VIAL IVP STA (03:27)
[2024-10-25] MEDS: SODIUM CHLORIDE 0.9% 1,000 ML IV STA (03:27)
[2024-10-25 03:35] LABS: Basophils # (A) 0.09 10*3/uL (0.00-0.10); Basophils % (A) 0.6 %; Eosinophils # (A) 0.25 10*3/uL (0.04-0.35); Eosinophils % (A) 1.7 %; HCT 42.2 % (37.2-46.3); HGB 14.5 g/dL (12.0-15.0); Lymphocytes # (A) 3.07 10*3/uL (0.90-5.00); Lymphocytes % (A) 21.4 %; MCH 30.8 pg (27.0-32.0); MCHC 34.4 g/dL (32.0-37.0); MCV 89.6 fL (80.0-97.0); Mean Platelet Volume 9.2 fL (9.5-12.2); Monocytes # (A) 1.01 10*3/uL (0.20-1.00); Neutrophils # (A) 9.88 10*3/uL (1.80-7.70); Neutrophils % (A) 68.8 %; Platelet Count 464 10*3/uL (140-440); RBC 4.71 10*6/uL (4.10-5.20); WBC 14.37 10*3/uL (4.50-10.00)
[2024-10-25] MEDS: ONDANSETRON 4 MG/2 ML VIAL IVP STA (03:44)
[2024-10-25] MEDS: cefTRIAXone 2 GM in DEXTROSE 5% IN WATER 50 ML IVPB STA (03:46)
[2024-10-25 03:52] LABS: ALT 14 U/L (4-34); AST 20 U/L (14-36); African American GFR (CKD) >90 (>60 ml/min/1.73 sqM); Alkaline Phosphatase 59 U/L (38-126); Anion Gap 16 mmol/L; Blood Urea Nitrogen 9 mg/dL (7-17); Calcium 10.7 mg/dL (8.4-10.2); Carbon Dioxide 23 mmol/L (22-30); Chloride 103 mmol/L (98-107); Glucose 86 mg/dL (74-99); Non-African American GFR(CKD) >90 (>60 ml/min/1.73 sqM); Potassium 3.9 mmol/L (3.5-5.1); Sodium 142 mmol/L (137-145); Total Bilirubin 0.5 mg/dL (0.2-1.3); Total Protein 8.5 g/dL (6.3-8.2)
[2024-10-25 04:01] LABS: Appearance,Urine Cloudy (Clear); Bacteria,Urine Rare /hpf; Bilirubin,Urine Negative (Negative); Blood,Urine Small (Negative); Color,Urine Colorless; Glucose,Urine (UA) Negative (Negative); Ketones,Urine Negative (Negative); Leukocyte Esterase,Urine Small (Negative); Mucus,Urine Rare /hpf; Nitrite,Urine Negative (Negative); PH, Urine 6.5 (5.0-8.0); Protein,Urine Negative (Negative); RBC,Urine 13 /hpf (0-5); Specific Gravity,Urine 1.013 (1.001-1.035); Squamous Epithelial Cell,Urine 14 /hpf (0-4); Urobilinogen,Urine <2.0 mg/dL (<2.0); WBC,Urine 6 /hpf (0-5)
[2024-10-25 04:44] VITALS: BP 106/64; PULSE 65
== END 2024-10-25 04:51 | disposition home or self-care (01) ==
LOC: EC 02:09
DX: M54.50 Low back pain, unspecified (principal); Z87.440 Personal history of urinary (tract) infections; Z87.442 Personal history of urinary calculi; F17.290 Nicotine dependence, other tobacco product, uncomplicated; Z88.2 Allergy status to sulfonamides; Z91.040 Latex allergy status; Z88.8 Allergy status to other drugs, medicaments and biological substances
CPT/HCPCS: 36415; 80053; 83605; 85025; 81001; 81025; 99284; 96374; 96375; 96361; J2405; J1885